=== PATIENT | female | born 1995 | race African-American/Black ===

== ENCOUNTER 2018-09-29 18:24 | Emergency (ER) | payer SELFPAY | END 2018-09-29 19:49 | disposition home or self-care (01) | LOC: M ED 18:24 | DX: N92.0 Excessive and frequent menstruation with regular cycle (principal); Z72.0 Tobacco use | CPT/HCPCS: 81025 ==

== ENCOUNTER 2018-10-07 20:44 | Emergency (ER) | payer SELFPAY ==
[2018-10-07] MEDS: NS 1,000 ML IV (21:56)
[2018-10-07 22:02] LABS: BASO % 0.5 % (0.0-1.0); EOS # 0.1 10^3/uL (0.0-0.50); EOS % 1.3 % (0.0-3.0); HEMATOCRIT 38.5 % (36.0-47.0); HEMOGLOBIN 13.1 g/dl (12.0-15.5); IMMATURE GRANULOCYTE % 0.3 % (0-3.0); LYMPH # 2.7 10^3/uL (1.5-6.5); LYMPH % 42.6 % (24.0-44.0); MEAN CORPUSCULAR HEMOGLOBIN 30.3 pg (27.0-33.0); MEAN CORPUSCULAR VOLUME 88.9 fl (80.0-96.0); MONO # 0.4 10^3/uL (0.0-0.8); MONO % 6.5 % (0.0-5.0); NEUTROPHILS # 3.1 10^3/uL (1.8-7.7); NEUTROPHILS % 48.8 % (36.0-66.0); PLATELET COUNT, AUTOMATED 113 10^3/uL (150-450); RED BLOOD COUNT 4.33 10^6/uL (4.00-5.40); RED CELL DISTRIBUTION WIDTH 13.3 % (11.5-14.5); WHITE BLOOD COUNT 6.3 10^3/uL (4.0-10.0)
[2018-10-07 22:25] LABS: ALBUMIN 4.3 GM/DL (3.2-5.2); ALBUMIN/GLOBULIN RATIO 1.48 (1.00-1.93); ALKALINE PHOSPHATASE 54 U/L (45-117); ALT/SGPT 13 U/L (12-78); ANION GAP 8 MEQ/L (8-16); AST/SGOT 7 U/L (7-37); BILIRUBIN,DIRECT 0.2 MG/DL (0.0-0.2); BILIRUBIN,TOTAL 0.6 MG/DL (0.2-1.0); BLOOD UREA NITROGEN 4 MG/DL (7-18); CALCIUM LEVEL 9.1 MG/DL (8.5-10.1); CARBON DIOXIDE LEVEL 26 MEQ/L (21-32); CHLORIDE LEVEL 108 MEQ/L (98-107); CREATININE FOR GFR 0.67 MG/DL (0.55-1.30); FERRITIN 36 NG/ML (8-252); GLOMERULAR FILTRATION RATE > 60.0 (>60); GLUCOSE, FASTING 86 MG/DL (70-100); IRON (FE) 76 UG/DL (50-170); KETONE, URINE AUTO RFX TRACE mg/dL (NEGATIVE); LEUKOCYTE ESTERASE UR AUTO RFX 3+ (NEGATIVE); MUCUS, URINE RFX MODERATE (NEGATIVE); NITRITE, URINE AUTO RFX NEGATIVE (NEGATIVE); PERCENT SATURATION 22.7 % (13.2-45.0); POTASSIUM SERUM 3.4 MEQ/L (3.5-5.1); RBC, URINE AUTO RFX 44 /HPF (0-3); SODIUM LEVEL 142 MEQ/L (136-145); SPECIFIC GRAVITY UR AUTO RFX 1.019 (1.002-1.035); SQUAM EPITHELIAL CELL UR AURFX 2 /HPF (0-6); TOTAL IRON BINDING CAPACITY 335 UG/DL (250-450); TOTAL PROTEIN 7.2 GM/DL (6.4-8.2); WBC, URINE AUTO RFX 118 /HPF (0-3)
[2018-10-07 22:27] LABS: CONTROL LINE HCG INT CTR LINE PRESENT; HCG, SERUM QUALITATIVE NEGATIVE (NEGATIVE)
== END 2018-10-07 23:00 | disposition home or self-care (01) ==
LOC: M ED 20:44
DX: N92.0 Excessive and frequent menstruation with regular cycle (principal); N93.8 Other specified abnormal uterine and vaginal bleeding; D50.9 Iron deficiency anemia, unspecified; Z72.0 Tobacco use; Z79.3 Long term (current) use of hormonal contraceptives
CPT/HCPCS: 76856

== ENCOUNTER 2019-02-28 15:43 | Emergency (ER) | payer SELFPAY ==
[~2019-02-28] VITALS: Ht 157.5 cm; Wt 50.5 kg
[~2019-02-28 15:43] MED LIST: BIRTH CONTROL PO
[2019-02-28] MEDS ORDERED: ACETAMINOPHEN TAB 650MG DOSE (2X325MG) PO ONE (17:00)
[2019-02-28 17:32] LABS: BASO % 0.5 % (0.0-1.0); EOS # 0.2 10^3/uL (0.0-0.50); EOS % 3.2 % (0.0-3.0); HEMATOCRIT 41.3 % (36.0-47.0); HEMOGLOBIN 13.7 g/dl (12.0-15.5); LYMPH # 2.4 10^3/uL (1.5-6.5); LYMPH % 43.7 % (24.0-44.0); MEAN CORPUSCULAR HGB CONC 33.2 g/dl (32.0-36.5); MEAN CORPUSCULAR VOLUME 90.4 fl (80.0-96.0); MONO # 0.5 10^3/uL (0.0-0.8); MONO % 8.5 % (0.0-5.0); NEUTROPHILS # 2.5 10^3/uL (1.8-7.7); NEUTROPHILS % 44.1 % (36.0-66.0); PLATELET COUNT, AUTOMATED 128 10^3/uL (150-450); RED BLOOD COUNT 4.57 10^6/uL (4.00-5.40); WHITE BLOOD COUNT 5.6 10^3/uL (4.0-10.0)
[2019-02-28 18:10] LABS: ALT/SGPT 16 U/L (12-78); BILIRUBIN,DIRECT 0.2 MG/DL (0.0-0.2); BILIRUBIN,TOTAL 0.8 MG/DL (0.2-1.0); BLOOD UREA NITROGEN 8 MG/DL (7-18); CALCIUM LEVEL 8.9 MG/DL (8.5-10.1); CARBON DIOXIDE LEVEL 24 MEQ/L (21-32); CHLORIDE LEVEL 109 MEQ/L (98-107); GLOMERULAR FILTRATION RATE > 60.0 (>60); GLUCOSE, FASTING 81 MG/DL (70-100); LIPASE 132 U/L (73-393); POTASSIUM SERUM 3.8 MEQ/L (3.5-5.1); SODIUM LEVEL 140 MEQ/L (136-145); TOTAL PROTEIN 6.9 GM/DL (6.4-8.2)
--- NOTE | 2019-02-28 19:09 | REPVR ---
EXAM: US Pelvis, Transvaginal EXAM DATE/TIME: 02/28/2019 6:40 PM CLINICAL HISTORY: 24 years old, female; Pelvic pain; Additional info: RO ovarian abscess TECHNIQUE: Imaging protocol: Real-time transvaginal pelvic ultrasound with image documentation. Transvaginal imaging was used for better evaluation of the endometrium and adnexa. COMPARISON: US PELVIC NON-OB COMPLETE 10/07/2018 9:27 PM FINDINGS: Uterus/cervix: Uterus measures 7 x 5 x 5.8 cm. Endometrial echo complex measures 15 mm. Findings consistent with late proliferative phase. Right adnexa: Right ovary measures 4 x 3.1 x 2.3 cm. Hypoattenuating solid lesion in the right ovary measures 1.7 x 1 5 cm consistent with a corpus luteum. Possible second solid lesion measures 2.2 x 0.9 x 1.8 cm although this may represent normal ovarian stroma. Normal blood flow. Left adnexa: Left ovary measures 3.1 x 1.5 x 1.9 cm. normal blood flow. Bladder: Bladder unremarkable. Free fluid: Trace free fluid in the cul-de-sac likely physiologic. IMPRESSION: Unremarkable examination. No evidence of torsion. Electronically signed by: Flavio Ordaz On 02/28/2019 19:09:40 PM
[2019-02-28] MEDS ORDERED: KETOROLAC 30 MG/ML VIAL (J1885) IV ONE (19:15)
[2019-02-28 19:21] VITALS: BP 107/61
[2019-02-28] MEDS ORDERED: MACR100C43 PO (19:41)
[2019-02-28] MEDS ORDERED: FLAG500T PO (19:41)
[2019-02-28 19:52] LABS: CHLAMYDIA DNA AMPLIFICATION NEGATIVE (NEGATIVE); GC DNA AMPLIFICATION NEGATIVE (NEGATIVE)
[2019-02-28] MEDS ORDERED: metroNIDAZOLE (FLAGYL) 500 MG TAB PO ONE (20:00)
[2019-02-28] MEDS ORDERED: NITROFURANTOIN (MACROBID) 100 MG CAP PO ONE (20:00)
== END 2019-02-28 20:04 | disposition home or self-care (01) ==
LOC: M ED 15:43
DX: N39.0 Urinary tract infection, site not specified (principal); N83.202 Unspecified ovarian cyst, left side; N76.0 Acute vaginitis; A59.8 Trichomoniasis of other sites; F17.210 Nicotine dependence, cigarettes, uncomplicated
CPT/HCPCS: 76830; 76856; 80048; 80076; 81001; 83690; 84702; 85025; 87086; 87210; 87661; 93976; 96374; 99284; J1885

== ENCOUNTER → 2019-03-31 | Outpatient (REF) | payer MEDICAID ==
[~2019-03-31] MED LIST changes: +FLAG500T PO; +MACR100C43 PO
[2019-03-31 17:40] LABS: THYROID STIMULATING HORMONE 0.283 uIU/ML (0.358-3.740)
[2019-03-31 17:44] LABS: PROLACTIN 4.5 NG/ML
[2019-03-31 18:23] LABS: HIV 1&2 SCREEN CENTAUR NEGATIVE (NEGATIVE)
== END ==
LOC: M SFHCPLAZ 15:48
PROVIDERS: ATTEND Family Medicine
DX: Z30.013 Encounter for initial prescription of injectable contraceptive (principal); Z11.3 Encounter for screening for infections with a predominantly sexual mode of transmission; Z11.4 Encounter for screening for human immunodeficiency virus [HIV]; N64.4 Mastodynia; N64.52 Nipple discharge

== ENCOUNTER → 2019-04-03 | Outpatient (REF) | payer MEDICAID ==
[2019-04-03 18:34] LABS: FREE T3 2.8 PG/ML (2.2-4.0); FREE T4 0.97 NG/DL (0.76-1.46); THYROID STIMULATING HORMONE 0.734 uIU/ML (0.358-3.740)
[2019-04-03 20:40] LABS: CHLAMYDIA DNA AMPLIFICATION POSITIVE (NEGATIVE); GC DNA AMPLIFICATION NEGATIVE (NEGATIVE)
== END ==
LOC: M SFHCPLAZ 15:38
PROVIDERS: ATTEND Family Medicine
DX: Z11.3 Encounter for screening for infections with a predominantly sexual mode of transmission (principal); R79.89 Other specified abnormal findings of blood chemistry

== ENCOUNTER → 2019-04-10 | Outpatient (CLI) | payer MEDICAID ==
[~2019-04-10] MED LIST changes: +AZIT500T2 PO
== END ==
LOC: M RAD 14:13
PROVIDERS: ATTEND Family Medicine
DX: Z53.9 Procedure and treatment not carried out, unspecified reason (principal); N64.4 Mastodynia

== ENCOUNTER 2019-04-16 23:41 | Emergency (ER) | payer MEDICAID ==
[~2019-04-16] VITALS: Ht 157.5 cm; Wt 51.4 kg
[~2019-04-16 23:41] MED LIST changes: -AZIT500T2 PO
[2019-04-16 23:42] VITALS: BP 126/55
[2019-04-16] MEDS ORDERED: AZIT500T2 PO (23:47)
== END 2019-04-17 01:29 | disposition left against medical advice (07) ==
LOC: M ED 23:41
DX: Z53.29 Procedure and treatment not carried out because of patient's decision for other reasons (principal)

== ENCOUNTER 2024-05-19 04:02 | Emergency (ER) | payer MEDICAID, SELFPAY ==
[~2024-05-19] VITALS: Ht 157.5 cm; Wt 57.0 kg
[~2024-05-19 04:02] MED LIST changes: +AZIT500T5 PO
[2024-05-19 08:26] VITALS: BP 135/87; TEMP 97.6; O2SAT 97
== END 2024-05-19 08:27 | disposition home or self-care (01) ==
LOC: M ED 04:02
DX: S93.401A Sprain of unspecified ligament of right ankle, initial encounter (principal); W19.XXXA Unspecified fall, initial encounter; Y92.009 Unspecified place in unspecified non-institutional (private) residence as the place of occurrence of the external cause; Y93.89 Activity, other specified; Y99.8 Other external cause status; F17.200 Nicotine dependence, unspecified, uncomplicated

== ENCOUNTER 2024-06-06 21:48 | Emergency (ER) | payer SELFPAY ==
[~2024-06-06] VITALS: Ht 160 cm; Wt 58.8 kg
[2024-06-06] MEDS: KETOROLAC 60MG 2ML VIAL IM ONE (23:52)
[2024-06-06 23:59] VITALS: BP 143/76; TEMP 99; O2SAT 99
== END 2024-06-07 00:08 | disposition home or self-care (01) ==
LOC: M ED 21:48
DX: K02.9 Dental caries, unspecified (principal)
CPT/HCPCS: 96372; 99283; J1885

== ENCOUNTER → 2024-11-15 | Outpatient (REF) ==
[2024-11-16 15:13] LABS: HERPES ZOSTER, VARICELLA IgG 2.59 S/CO (>=1.00)
== END ==
LOC: M LAB 12:54
PROVIDERS: ATTEND Family Medicine
DX: Z01.89 Encounter for other specified special examinations (principal)

== ENCOUNTER → 2025-02-26 | Outpatient (REF) | LOC: M EMP 11:02 | PROVIDERS: ATTEND Family Medicine | DX: Z11.52 Encounter for screening for COVID-19 (principal) ==

== ENCOUNTER 2025-03-07 21:43 | Emergency (ER) | payer OTHER, SELFPAY ==
[~2025-03-07] VITALS: Ht 157.5 cm; Wt 65.2 kg
[2025-03-07 22:19] LABS: HEMATOCRIT 35.4 % (36.0-47.0); HEMOGLOBIN 11.5 g/dl (12.0-15.5); MEAN CORPUSCULAR HEMOGLOBIN 28.5 pg (27.0-33.0); MEAN CORPUSCULAR HGB CONC 32.5 g/dl (32.0-36.5); MEAN CORPUSCULAR VOLUME 87.8 fl (80.0-96.0); PLATELET COUNT, AUTOMATED 158 10^3/uL (150-450); RED BLOOD COUNT 4.03 10^6/uL (4.00-5.40); WHITE BLOOD COUNT 5.6 10^3/uL (4.0-10.0)
[2025-03-07 22:46] LABS: HCG, SERUM QUANTITATIVE < 2.6 MIU/ML (<4.2)
[2025-03-07 22:47] LABS: BLOOD UREA NITROGEN 9 MG/DL (9-23); CALCIUM LEVEL 9.4 MG/DL (8.5-10.1); CARBON DIOXIDE LEVEL 27 MMOL/L (20-31); CHLORIDE LEVEL 107 MMOL/L (98-107); CREATININE FOR GFR 0.53 MG/DL (0.55-1.30); GLOMERULAR FILTRATION RATE > 90.0 (>60); GLUCOSE, FASTING 84 MG/DL (60-100); POTASSIUM SERUM 3.8 MMOL/L (3.5-5.1); SODIUM LEVEL 140 MMOL/L (136-145)
[2025-03-07 22:51] LABS: ATYPICAL LYMPH 1 % (0-5); BASOPHILS 2 % (0-1); LYMPHOCYTES 55 % (16-44); MONOCYTES 4 % (0-5); NEUTROPHILS 38 % (28-66)
[2025-03-07 22:54] LABS: PLATELET ESTIMATE NORMAL (NORMAL)
[2025-03-07 22:55] LABS: ANISOCYTOSIS 1+
[2025-03-08 00:40] LABS: KETONE, URINE AUTO RFX 1+ mg/dL (NEGATIVE); LEUKOCYTE ESTERASE UR AUTO RFX NEGATIVE (NEGATIVE); MUCUS, URINE RFX SMALL (NEGATIVE); NITRITE, URINE AUTO RFX NEGATIVE (NEGATIVE); RBC, URINE AUTO RFX 1 /HPF (0-3); SQUAM EPITHELIAL CELL UR AURFX 3 /HPF (0-6); WBC, URINE AUTO RFX 3 /HPF (0-3)
[2025-03-08 01:15] VITALS: BP 129/77; TEMP 98.9; O2SAT 99
[2025-03-08 01:43] LABS: Trichomonas vaginalis (AMP) NOT DETECTED (NEGATIVE)
[2025-03-08 02:06] LABS: GC DNA AMPLIFICATION NEGATIVE (NEGATIVE)
== END 2025-03-08 01:22 | disposition home or self-care (01) ==
LOC: M ED 21:43
DX: N93.8 Other specified abnormal uterine and vaginal bleeding (principal)

== ENCOUNTER → 2025-05-31 | Outpatient (REF) | payer OTHER, SELFPAY ==
[2025-05-31 17:10] LABS: ESTIMATED AVERAGE GLUCOSE 94.0 MG/DL (60-110)
[2025-05-31 17:14] LABS: BASO # 0.1 10^3/uL (0.0-0.2); BASO % 1.3 % (0.0-1.0); EOS # 0.2 10^3/uL (0.0-0.5); EOS % 3.4 % (0.0-3.0); LYMPH # 2.5 10^3/uL (1.5-5.0); LYMPH % 40.8 % (24.0-44.0); MONO # 0.4 10^3/uL (0.0-0.8); MONO % 7.0 % (2.0-8.0); NEUTROPHILS # 2.9 10^3/uL (1.5-8.5); NEUTROPHILS % 46.7 % (36.0-66.0); PLATELET COUNT, AUTOMATED 183 10^3/uL (150-450)
[2025-05-31 17:38] LABS: IRON (FE) 107 UG/DL (50-170); PERCENT SATURATION 24.3 % (13.2-45.0)
[2025-05-31 17:39] LABS: ALT/SGPT 16 U/L (7.0-40); AST/SGOT 19 U/L (<34); CALCIUM LEVEL 9.5 MG/DL (8.5-10.1); CARBON DIOXIDE LEVEL 25 MMOL/L (20-31); CHLORIDE LEVEL 103 MMOL/L (98-107); CHOLESTEROL LEVEL 194 MG/DL (<200); CHOLESTEROL RISK RATIO 2.07 (<5); CREATININE FOR GFR 0.57 MG/DL (0.55-1.30); GLOMERULAR FILTRATION RATE > 90.0 (>60); LDL CHOLESTEROL 76.1 MG/DL (<100); NON-HDL-C 100.3 MG/DL; POTASSIUM SERUM 3.8 MMOL/L (3.5-5.1); SODIUM LEVEL 142 MMOL/L (136-145); TRIGLYCERIDES LEVEL 121 MG/DL (<150)
[2025-05-31 18:11] LABS: HIV 1&2 SCREEN NEGATIVE (NEGATIVE)
[2025-05-31 18:19] LABS: HEPATITIS C VIRUS ABY INDEX < 0.02 INDEX (<0.8)
== END ==
LOC: M LAB REF 16:31
PROVIDERS: ATTEND Nurse Practitioner Family
DX: R53.83 Other fatigue (principal); E66.3 Overweight; Z11.9 Encounter for screening for infectious and parasitic diseases, unspecified; Z86.39 Personal history of other endocrine, nutritional and metabolic disease

== ENCOUNTER 2025-10-08 18:06 | Emergency (ER) | payer MEDICAID, SELFPAY ==
[~2025-10-08] VITALS: Ht 160 cm; Wt 61.7 kg
[2025-10-08 19:14] LABS: PLATELET COUNT, AUTOMATED 156 10^3/uL (150-450)
[2025-10-08 19:24] LABS: ALT/SGPT 10 U/L (7.0-40); AST/SGOT 13 U/L (<34); CALCIUM LEVEL 9.0 MG/DL (8.5-10.1); CARBON DIOXIDE LEVEL 26 MMOL/L (20-31); CHLORIDE LEVEL 106 MMOL/L (98-107); CREATININE FOR GFR 0.66 MG/DL (0.55-1.30); GLOMERULAR FILTRATION RATE > 90.0 (>60); POTASSIUM SERUM 4.2 MMOL/L (3.5-5.1); SODIUM LEVEL 141 MMOL/L (136-145)
[2025-10-08 19:27] LABS: HCG, SERUM QUALITATIVE NEGATIVE (NEGATIVE)
[2025-10-08 19:41] LABS: ATYPICAL LYMPH 2 % (0-5); EOSINOPHILS 3 % (0-3); LYMPHOCYTES 27 % (16-44); MONOCYTES 8 % (0-5); NEUTROPHILS 60 % (28-66); PLATELET ESTIMATE NORMAL (NORMAL)
[2025-10-08 20:14] VITALS: BP 138/77; TEMP 97.8; O2SAT 99
== END 2025-10-08 21:13 | disposition left against medical advice (07) ==
LOC: M ED 18:06
DX: Z53.21 Procedure and treatment not carried out due to patient leaving prior to being seen by health care provider (principal)